=== PATIENT | female | born 1960 | race Caucasian/White ===

== ENCOUNTER 2020-02-08 08:11 | Observation (INO) ==
--- NOTE | 2019-12-31 14:18 | PAT Medication Instructions ---
Medication Instructions Date of Service December 31, 2019 Home Medications fluoxetine 20 mg PO QAM furosemide [Lasix] 10 mg PO DAILY PRN diclofenac sodium 75 mg PO BID PRN famotidine 20 mg PO DAILY PRN ASK your surgeon for instructions diclofenac sodium 75 mg PO BID PRN DO NOT take the morning of surgery furosemide [Lasix] 10 mg PO DAILY PRN Take morning of surgery With a small sip of water, OTHERWISE NOTHING TO EAT OR DRINK AFTER MIDNIGHT: fluoxetine 20 mg PO QAM famotidine 20 mg PO DAILY PRN (if needed) Other Notes If you have any questions please call us at [phone] or [phone] or [phone] or [phone]
--- NOTE | 2020-01-03 11:03 | Anesthesiology Consultation ---
Date of Service January 03, 2020 Assessment & Plan (1) Encounter for pre-operative examination: Chart Review Chart Review: Acceptable Risk for Surgery and Patient seen in Pre Admission Testing Teaching & Discussion Instructed NPO after midnight before surgery, except medications with 15 cc of water. Medication instructions provided according to the PAT guidelines. History Surgery Operation Date: 02/08/20 10:40 Proposed Procedures p Left Total Knee Arthroplasty - Ferny Pacheco MD Height/Weight Height: 5 ft Weight: 89.4 kg Allergies Allergy/AdvReac Type Severity Reaction Status Date / Time No Known Allergies Allergy Verified 01/03/20 09:02 Medications Home Medications Medication Instructions Recorded Confirmed Last Taken fluoxetine 20 mg PO QAM 06/05/18 01/03/20 07/06/18 08:00 furosemide [Lasix] 10 mg PO DAILY PRN 06/05/18 12/30/19 07/06/18 08:00 diclofenac sodium 75 mg PO BID PRN 12/30/19 01/03/20 Unknown famotidine 20 mg PO DAILY PRN 12/30/19 01/03/20 Unknown Past Medical History Medical History Bilateral primary osteoarthritis of knee Depression GERD (gastroesophageal reflux disease) History of ovarian cyst Nausea and vomiting after administration of anesthetic agent Osteoarthritis TMJ click Exercise / Class Metabolic Activity III < 4 Walking/Shop/Light housework (Denies CP or SOB with ambulation, cant do stairs 2/2 knee pain) Past Surgical History Surgical History History of bilateral tubal ligation History of cataract extraction with lens replacement BL History of colonoscopy w/ polypectomy History of ovarian cystectomy History of surgery cysts removed from coccyx History of toe surgery Left great toe History of tooth extraction Past Anesthesia History No Hx of Anesthesia Complications and No Family Hx of Anesthesia Complications History of PONV No Hx of Motion Sickness and History of PONV Social History Smoking Status: Current every day smoker tobacco type: cigarettes Smoking cigarettes per day: 1/2 PPD-- advised none AM DOS Do You Dip or Chew Tobacco: No Hx Alcohol Use: No Hx Substance Use: No substance use type: does not use Review of Systems Pt denies any recent chest pain, shortness of breath, palpitations, cough, fever or URI. Physical Exam Vital Signs BP: 136/82 P: 70bpm SPO2: 99% RA T: 97.9 F R: 16 ENMT Mouth: no dental restorations, no chipped teeth and no loose teeth Thyromental Distance: > or= 3.5 Finger Breadths (4) Mallampati Class: II Neck normal visual inspection; neck extension not limited Respiratory normal respiratory effort Auscultation: lungs clear to auscultation bilaterally Cardiovascular Rate/Rhythm: regular rate and regular rhythm Heart Sounds: no murmur Extremities: no edema Testing Laboratory Results 01/03/20 11:12 01/03/20 11:12 PT 10.3 Seconds (9.0-12.0) 01/03/20 11:12 INR 1.0 (0.9-1.1) 01/03/20 11:12 APTT 25.6 Seconds (21.0-31.0) 01/03/20 11:12 Blood Type A Positive 01/03/20 11:12 Antibody Screen NEGATIVE 01/03/20 11:12 Electrocardiogram Date: 01/03/20 Findings: + NSR @ (64bpm) Chest X-Ray Date: 01/03/20 FINDINGS: An apparent 2.5 cm right suprahilar focus has central lucency. This is likely artifactual. Lung volumes are normal. Lungs are clear. There is no pneumothorax or pleural effusion. Cardiac size is normal. Mediastinal contours are normal. There is no evidence for pulmonary edema. IMPRESSION: 1. Equivocal 2.5 cm right suprahilar focus with central lucency. This is likely artifactual. However, a chest CT is recommended. 2. No acute findings. THIS FINDING WAS FAXED TO THE PATIENT'S PCP FOR THEIR CONTINUED F/U.
[2020-01-03 11:37] LABS: Basophils # (auto) 0.07 K/uL (0-0.2); Basophils % (auto) 0.8 %; Eosinophils # (auto) 0.24 K/uL (0-0.5); Eosinophils % (auto) 2.8 %; Hematocrit (blood only) 44.1 % (37-47); Immature Granulocytes # (auto) 0.02 K/uL (0.00-0.02); Immature Granulocytes % (auto) 0.2 %; Lymphocytes # (auto) 3.19 K/uL (1.2-3.4); Lymphocytes % (auto) 37.8 %; Mean Corpuscular Hemoglobin 28.7 pg (25-34); Mean Corpuscular Hgb Conc 31.7 g/dL (32-36); Mean Corpuscular Volume 90.6 fL (80-100); Mean Platelet Volume 9.9 fL (7.4-10.4); Monocytes # (auto) 0.58 K/uL (0.11-0.59); Monocytes % (auto) 6.9 %; Neutrophils # (auto) 4.35 K/uL (1.4-6.5); Neutrophils % (auto) 51.5 %; Platelet Count 334 K/uL (130-400); RDW Coefficient of Variation 15.4 % (11.5-14.5); RDW Standard Deviation 51.2 fL (36.4-46.3); Red Blood Count 4.87 M/uL (4.2-5.4); White Blood Count 8.45 K/uL (4.8-10.8)
--- NOTE | 2020-01-03 11:37 | XRay Report ---
XR chest Pre-admission PA/Lat CLINICAL HISTORY: Preoperative evaluation. COMPARISON STUDY: No previous studies for comparison. FINDINGS: An apparent 2.5 cm right suprahilar focus has central lucency. This is likely artifactual. Lung volumes are normal. Lungs are clear. There is no pneumothorax or pleural effusion. Cardiac size is normal. Mediastinal contours are normal. There is no evidence for pulmonary edema. IMPRESSION: 1. Equivocal 2.5 cm right suprahilar focus with central lucency. This is likely artifactual. However, a chest CT is recommended. 2. No acute findings. ACT 112: Positive. There are findings on this exam that require communication between the performing entity and the patient following Patient Test Result Information Act ([place] Act 112) guidelines. Electronically signed by: Aime Salazar M.D. 01/03/2020 11:35 AM
[2020-01-03 11:50] LABS: Partial Thromboplastin Ratio 0.9; Partial Thromboplastin Time 25.6 Seconds (21.0-31.0); Prothrombin Time 10.3 Seconds (9.0-12.0)
--- NOTE | 2020-01-03 12:37 | Electrocardiogram Report ---
Test Reason : Blood Pressure : / mmHG Vent. Rate : 064 BPM Atrial Rate : 064 BPM P-R Int : 132 ms QRS Dur : 088 ms QT Int : 424 ms P-R-T Axes : 052 041 022 degrees QTc Int : 437 ms Normal sinus rhythm Normal ECG No previous ECGs available Confirmed by Billy Yoder ([id number]) on 01/03/2020 12:37:30 PM Referred By: Ferny Pacheco Confirmed By:Jose Carlos Yoder
[2020-01-03 13:36] LABS: BUN Creatinine Ratio 17.5 (10-20); Calcium 9.3 mg/dl (8.5-10.1); Creatinine Clr Calc Pharmacy 58.5 ml/min; Est GFR (African American) 68.9; Est GFR (Non-African American) 59.5
--- NOTE | 2020-02-05 11:32 | History and Physical Report ---
DATE OF ADMISSION: 02/08/2020 CHIEF COMPLAINT: Bilateral knee pain and discomfort, left side greater than right. HISTORY OF PRESENT ILLNESS: The patient is a 59-year-old female from [facility] who specifically presents for surgical treatment of her left knee. She has got a long history of bilateral knee pain and discomfort that has gradually gotten worse over the past 5-10 years. She has been through extensive conservative treatment by her primary care doctor including multiple injections, which have become less successful over time. Last shot actually made her left knee worse. She has been on prednisone, which seemed to help some. She has global pain. The more she walks, the more it hurts. She limps more as the day goes on. There are some days that she cries at the end of the day. She would like to have her left knee fixed. PAST MEDICAL HISTORY: Significant for: 1. Anxiety/depression. 2. Gastroesophageal reflux disease. 3. Mild obesity. 4. Smoking history. PAST SURGICAL HISTORY: Includes: 1. Toe surgery. 2. Tailbone cyst removal. 3. Tubal ligation. ALLERGIES: SEASONAL. CURRENT MEDICINES: Include: 1. Diclofenac twice a day. 2. Famotidine 20 mg a day. 3. Fluoxetine. 4. Lasix 10 mg a day. SOCIAL HISTORY: A 59-year-old female. She is from [place]. She smokes half a pack of cigarettes a day. Does not drink alcohol. FAMILY HISTORY: Noncontributory. REVIEW OF HISTORY: Negative for diabetes, neurologic problem, vascular problems or bleeding disorders. Denies any chest pain or shortness of breath. No history of DVT or PE. No known bleeding problems. PHYSICAL EXAMINATION: GENERAL: Shows a pleasant, middle-aged female. She looks to be in pretty good health. HEENT: Benign. NECK: Supple, no lymphadenopathy. LUNGS: Clear to auscultation. HEART: Regular rate and rhythm. ABDOMEN: Soft, nontender, nondistended. EXTREMITIES: Grossly neurovascularly intact except as follows: Examination of both knees reveals the patient walks independently. She has got varus alignment to both knees. She limps a little bit more on the left than the right, walks a little bit of a waddling gait. She has got a varus deformity to her knee, which is increased with weightbearing. She is tender with medial joint line bilaterally. Range of motion on the left is near full extension to 125 degrees of flexion. There is no instability. Range of motion on the right is 5-125. Small knee effusion. No instability. X-RAYS: X-rays of both knees were reviewed. Advanced bilateral medial compartment DJD. She has got complete loss of medial joint space on both sides. She has got osteophytes throughout. ASSESSMENT: A 59-year-old white female with bilateral knee degenerative joint disease, left side a bit worse than the right symptomatically. She has failed conservative treatment and would like to have her left knee replaced. PLAN: We are going to proceed with left knee replacement. The risks and benefits of this procedure were explained to the patient including but not limited to DVT, PE, , infection, neurological injury, vascular injury, bleeding problem, pain, limited range of motion, persistent pain, and need for further surgery in the future. The patient understands and desires to proceed. Informed consent was obtained. She does have a history of smoking. We talked about stopping. She will likely need a patch in the hospital. We also talked about holding her diclofenac 10 days preop. Her preoperative workup showed a questionable lesion on her chest and we will have her primary care doctor follow up on that.
[~2020-02-08 08:11] MED LIST: ACETAMINOPHEN 500 MG TAB PO SCH; BUPIVACAINE 0.5 % 5 MG/1 ML PF 10ML VIAL ONE; BUPIVACAINE LIPOSOME/PF 266 MG, BUPIVACAINE/EPINEPHRINE 50 ML, SODIUM CHLORIDE 0.9% 30 ... INFIL SCH; CEFAZOLIN 2000MG 2,000 MG/15 ML SYR IV SCH; FAMOTIDINE 20 MG TAB PO SCH; GABAPENTIN 600 MG DOSE PO SCH; LR 500ML BOLUS, THEN 15ML/HR IV SCH; LR 60ML/HR IV SCH; METOCLOPRAMIDE HCL 10 MG TABLET PO SCH; MIDAZOLAM HCL 1 MG/ML 2ML VIAL ONE; TRANEXAMIC ACID 1,000 MG **IV Intra-op IV SCH; fentaNYL citrate 100 MCG/2 ML VIAL ONE
[2020-02-08] MEDS ORDERED: ATROPINE SULFATE 0.1 MG/ML 10ML SYR IV PRN (09:52)
[2020-02-08] MEDS ORDERED: ePHEDrine sulfate 50 MG/ML AMP IV PRN (09:52)
[2020-02-08] MEDS ORDERED: ONDANSETRON INJ 2 MG/ML 2 ML VIAL IV PRN ×2 (09:52→13:35)
[2020-02-08] MEDS ORDERED: fentaNYL citrate 100 MCG/2 ML VIAL IV PRN (09:52)
[2020-02-08] MEDS ORDERED: SODIUM CHLORIDE 0.9% PF 50 ML VIAL ONE (10:18)
[2020-02-08] MEDS ORDERED: BUPIVACAINE/EPINEPHRINE 0.25% 1:200,000 30 ML VIAL ONE (10:18)
[2020-02-08] MEDS ORDERED: BUPIVACAINE LIPOSOME 1.3% 266 MG/20 ML VIAL ONE (10:18)
[2020-02-08] MEDS ORDERED: BACITRACIN INJ 50,000 UNIT VIAL ONE (10:19)
--- NOTE | 2020-02-08 10:24 | History & Physical Bridge Note ---
Date of Service February 08, 2020 History & Physical Bridge Note I have examined the patient, reviewed the History & Physical and in the interval since the performance of the History & Physical I have noted the following changes of clinical significance: no changes noted
[2020-02-08] MEDS ORDERED: PROPOFOL IV EMULSION 10 MG/ML 20 ML VIAL IV ONE (10:40)
--- NOTE | 2020-02-08 12:26 | Post Operative Brief Note ---
PG Immediate Post Op with CF Date of Surgery February 08, 2020 Pre & Post Diagnosis Operation Date: 02/08/20 10:40 Pre-Op Diagnosis: Left Knee Advanced Degenerative Joint Disease Post-Op Diagnosis: Left Knee Advanced Degenerative Joint Disease I identified the patient and participated in the time-out.: Yes Procedure Operation Date: 02/08/20 10:40 Actual Procedures p Left Total Knee Arthroplasty(Left) - Ferny Pacheco MD Surgeon Ferny Pacheco MD Forest[employer] Tree Pruner Posniak, PAC Estimated Blood Loss 50 Findings Consistent with Post-Op Diagnosis Fluids 700 cc Specimens Specimen Description: Permanent: A. Left Knee Bone and Tissue Drains Zhang Catheter Anesthesia Type Spinal MAC Disposition Accompanied Patient To Recovery: No Disposition: Recovery Room
--- NOTE | 2020-02-08 12:41 | Operative Report ---
Post Operative Report Pre & Post Diagnosis Operation Date: 02/08/20 10:40 Pre-Op Diagnosis: Left Knee Advanced Degenerative Joint Disease Post-Op Diagnosis: Left Knee Advanced Degenerative Joint Disease I identified the patient and participated in the time-out.: Yes Procedure Operation Date: 02/08/20 10:40 Actual Procedures p Left Total Knee Arthroplasty(Left) - Ferny Pacheco MD Surgeon Ferny Pacheco MD Molder Setter Irina, PAC Estimated Blood Loss 50 Findings Consistent with Post-Op Diagnosis Operative findings revealed advanced left knee DJD. She had extensive grade 4 [id number] disease and eburnation of the medial femoral condyle medial tibial plateau. She had a varus deformity to her knee with osteophytes particular in the posterior medial compartment. Moderate-sized joint effusion. About a 10 to 15 degree flexion contracture. Fluids 700 cc. Specimens Left knee sent for pathology. Drains None. Anesthesia Type Spinal MAC Complications none Disposition Accompanied Patient To Recovery: No Disposition: Recovery Room Indications Patient is a 59-year-old female is had a long history of bilateral knee pain discomfort. She has been through extensive conservative treatment which became less successful over time. A left knee was by the more than the right. X-ray showed advanced medial compartment DJD. She elected proceed with surgical treatment. Patient was thought to possibly have a nickel allergy and therefore we used a Nguyen [employer] Nephew zirconium journey 2 knee arthroplasty. Trevor Arevalo, physician [employer] assistant manager, was present for the entire procedure. He was critical for patient positioning, prepping, draping, retraction, exposure, wound closure, and application of a sterile dressing. Description of Procedure Operative implants consist of: 1. Nguyen [employer] Nephew size 5 left journey 2 posterior stabilized femoral component. 2. Nguyen [employer] Nephew journey 2 size 3 tibial tray. 3. Nguyen [employer] Nephew 9 mm Po stabilized polyethylene insert. 4. 29 x 9 all poly-patella. Patient was taken to the operating room identified and placed on the operating table supine position. All contact areas were appropriately padded. IV antibiotics arrived by anesthesia team. A spinal anesthetic and been implemented holding area. Zhang catheter was placed in sterile fashion. Left factor was then placed in the left lower extremity was then prepped and draped in usual sterile fashion. The left leg was elevated and exsanguinated with use of an Esmarch interspace at 300 mmHg. An anterior posterior left knee was then performed through a longitudinal incision centered over the patella. Sharp dissection got through subcutaneous this down to the extensor mechanism. A medial parapatellar arthrotomy incision was made. Some subperiosteal dissection was carried out medially. The fat pad was dissected beneath patella tendon. Lateral patellofemoral ligament was released. Patella was subluxated laterally and the knee was flexed with the osteophytes taken off distal femur. The ACL PCL were then released in the distal femur and the tibia subluxate anteriorly. External tibial alignment jig was then placed in the interface the tibia and adjusted 8 mm medially. Proximal tibial cut was made remove about 1 to 2 mm of bone from the most efficient aspect medial tibial plateau. Some osteophytes were taken off medial and posterior medially. The tibia sized to a size 3. Attention drawn the femur. The distal femur was entered with a sharp drill. The intramedullary canal was suction. A left 5 degree valgus cutting guide was placed. Distal femoral cutting block was put and pinned in place. The distal femoral cut was made to take an additional 2 mm of bone off distal femur. The femur was then sized to a size 5 exactly. The AP cutting block was pinned parallel to the epicondylar axis which was 5 degrees of external rotation. The anterior cut, anterior cord, posterior cut, posterior chamfer cut, anterior chamfer cut were then made. The knee was flexed. The remnants of the medial lateral menisci were excised. The osteophytes were taken off the posterior aspect of the femur. I then placed the femoral component. The box cutting guide was then placed and the box cut was made. The trochlear component was placed. The tibia was then pinned in maximum external rotation and the drill and stem punch were used to create defect in the proximal tibia for the tibial tray. Then trialed the knee and the 9 mm insert fit most appropriately. Attention drawn the patella. Patella was cleaned of all soft tissues. Patella thickness measured 23 mm in thickness cut down to 13. Was sized to a size 29 patella. Locals were drilled for the 29 patella. The lateral osteophyte was removed. Patella button was placed. Knee was taken through range of motion patella tracked nicely with no thumbs test. Attention drawn to placing the permanent components. All trial components were removed. Bone plug was placed in the distal femur limit blood loss put a double batch Pal[place] G cement was mixed. A Nguyen & Nephew size 5 left posterior by femoral component, size 3 tibial tray, 9 mm Po stabilized polyethylene insert, and a 29 x 9 all poly-patella then cement placed. Knee was brought out into full extension total cement hardened. Final cement check was then performed. The pericapsular tissues were injected with total 100 cc of combination of 20 cc of Exparel, 30 cc normal saline, 50 cc of quarter percent Marcaine with epinephrine. Patient did receive 1 g tranexamic acid. The tourniquet was then let down for tourniquet time 64 minutes. Hemostasis assured use electrocautery. Extensor mechanism then closed with combination 1 PDS suture #1 Vicryl suture in [id number] fashion to the extensor mechanism checked found to be intact the subcutaneous tissue then closed with 2 Dexon suture in buried interrupted fashion. Skin was closed with skin dennise. Leg was then cleaned and dried a sterile dressing composed Xeroform, 4 x 4's, sterile cast padding, Geovanny bandage were applied. Patient then transferred to the recovery room in stable condition. Patient tolerated procedure well no complications. Trevor Arevalo PA-C was present for the entire procedure. He was critical for patient positioning, prepping, draping, retraction, exposure, wound closure, and application of a sterile dressing. I attest to the content of the Intraoperative Record and any orders documented therein. Any exceptions are noted below.
--- NOTE | 2020-02-08 12:58 | Anesthesiology Progress Note ---
Date of Service February 08, 2020 Anesthesia Post Procedure Vital Signs Vital Signs: Temp Pulse Pulse Resp BP BP Pulse Ox 02/08/20 12:45 76 19 144/79 H 100 02/08/20 12:35 80 13 152/73 H 100 02/08/20 12:29 98.2 F 79 16 145/85 H 100 02/08/20 09:41 64 18 156/109 H 98 02/08/20 08:43 98.2 F 78 18 184/82 H 98 Pain Intensity Left Knee: Pain Intensity: 0 Transfer of Care Handoff Completed per policy Notes Mental Status: alert / awake / arousable and participated in evaluation Patient Amnestic to Procedure: Yes Nausea / Vomiting: adequately controlled Pain: adequately controlled Airway Patency, RR, SpO2: stable & adequate BP & HR: stable & adequate Hydration State: stable & adequate Neuraxial Anesthesia: was administered and sensory block is resolving Anesthetic Complications: no major complications apparent and Pt Satisfied with anesthetic care
--- NOTE | 2020-02-08 12:58 | XRay Report ---
XR knee LT 1 or 2V routine CLINICAL HISTORY: Postoperative evaluation. COMPARISON: Knee radiographs January 03, 2020. FINDINGS: Alignment of the total left knee arthroplasty is anatomic. There is no fracture or unexpec emili radiopaque foreign body. There are skin dennise. IMPRESSION: Expected findings following total left knee arthroplasty. ACT 112: Negative or not required by law. Electronically signed by: Aime Salazar M.D. 02/08/2020 12:57 PM
[2020-02-08] MEDS ORDERED: FUROSEMIDE 20 MG TAB PO PRN (13:35)
[2020-02-08] MEDS ORDERED: METOCLOPRAMIDE HCL INJ 5 MG/ML 2 ML VIAL IV PRN (13:35)
[2020-02-08] MEDS ORDERED: FAMOTIDINE 20 MG TAB PO PRN (13:35)
[2020-02-08] MEDS ORDERED: MAGNESIUM HYDROXIDE SUSP 30 ML UDC PO PRN (13:35)
[2020-02-08] MEDS ORDERED: bisacodyL 10 MG SUPP PR PRN (13:35)
[2020-02-08] MEDS ORDERED: ALUMINUM/MAGNESIUM SUSP 30 ML UDC PO PRN (13:35)
[2020-02-08] MEDS ORDERED: NALOXONE HCL 0.4 MG/1 ML VIAL/CARP IV PRN (13:35)
[2020-02-08] MEDS ORDERED: HYDROmorphone INJ 0.5 MG/0.5 ML SYR IV PRN (13:35)
[2020-02-08] MEDS: SODIUM CHLORIDE 0.9% 1000ML 1,000 ML IV SCH (14:39)
[2020-02-08] MEDS: KETOROLAC 30 MG/ML VIAL IV SCH ×2 (14:39→20:56)
[2020-02-08] MEDS: OXYCODONE HCL IR 5 MG TAB (IMMEDIATE RELEASE) PO PRN (16:15)
[2020-02-08] MEDS: Scopolamine CHECK PATCH PLACEMENT SCH (16:18)
[2020-02-08] MEDS: ACETAMINOPHEN 500 MG TAB PO SCH ×2 (16:19→21:01)
[2020-02-08] MEDS: ASCORBIC ACID 500 MG TAB PO SCH (16:19)
[2020-02-08] MEDS: FERROUS GLUCONATE 324 MG TAB PO SCH (16:19)
--- NOTE | 2020-02-08 17:00 | Progress Notes ---
DATE: 02/08/2020 SUBJECTIVE: A 59-year-old white female postop from a left knee replacement. She is doing pretty well. Just starting to get some pain. No chest pain or shortness of breath. Not feeling dizzy or lightheaded. OBJECTIVE: VITAL SIGNS: Temperature 36.5. Vital signs stable. GENERAL: Shows a pleasant, middle-aged female. She is lying in bed and looks comfortable. She is doing some knee exercises. LUNGS: Clear to auscultation. HEART: Has a regular rate and rhythm. ABDOMEN: Soft, nontender, nondistended. EXTREMITIES: Grossly neurovascularly intact except as follows: Examination of the left leg reveals the leg to be well aligned. Dressing is clean, dry and intact. She can dorsiflex and plantarflex her foot appropriately. She is neurologically intact. X-RAYS: X-rays of the left knee from recovery room are reviewed. It shows a left cemented posterior stabilized total knee arthroplasty. Components looked to be in good position. No signs of problems. ASSESSMENT: A 59-year-old white female postoperative from a left knee replacement, doing well. Pain is controlled. She is neurologically intact. PLAN: 1. DVT prophylaxis including thigh-high TEDs, SCDs, and aspirin twice a day. 2. PT/OT. Weight bear as tolerated. Left total knee protocol. 3. Pain control, doing well with current pain regimen. 4. IV antibiotics x24 hours. 5. Disposition: Plan to discharge to home. She is going to do outpatient therapy once adequately recovered and medically stable.
[2020-02-08] MEDS ORDERED: TRANEXAMIC ACID / 0.7% NACL 1,000 MG/100 ML BAG IV SCH (18:29)
[2020-02-08] MEDS: CEFAZOLIN 2000MG 2,000 MG/15 ML SYR IV SCH (19:28)
[2020-02-08] MEDS: DOCUSATE SODIUM 100 MG CAP PO SCH (20:59)
[2020-02-08] MEDS: ASPIRIN 81 MG ECTAB PO SCH (20:59)
[2020-02-08] MEDS: TAPENTADOL HCL ER 50 MG TABCR PO SCH (20:59)
[2020-02-08] MEDS: SENNA 8.6 MG TAB PO SCH (20:59)
[2020-02-09] MEDS: Scopolamine CHECK PATCH PLACEMENT SCH ×3 (00:41→15:16)
[2020-02-09] MEDS: SODIUM CHLORIDE 0.9% 1000ML 1,000 ML IV SCH ×2 (01:14→06:25)
[2020-02-09] MEDS: KETOROLAC 30 MG/ML VIAL IV SCH ×4 (01:54→19:21)
[2020-02-09] MEDS: CEFAZOLIN 2000MG 2,000 MG/15 ML SYR IV SCH (01:57)
[2020-02-09 06:20] LABS: Hematocrit (blood only) 36.4 % (37-47); Hemoglobin 11.9 g/dL (12.0-16.0); Mean Corpuscular Hemoglobin 29.7 pg (25-34); Mean Corpuscular Hgb Conc 32.7 g/dL (32-36); Mean Corpuscular Volume 90.8 fL (80-100); Mean Platelet Volume 9.5 fL (7.4-10.4); Platelet Count 260 K/uL (130-400); RDW Coefficient of Variation 15.1 % (11.5-14.5); RDW Standard Deviation 50.9 fL (36.4-46.3); Red Blood Count 4.01 M/uL (4.2-5.4); White Blood Count 11.23 K/uL (4.8-10.8)
[2020-02-09] MEDS: ACETAMINOPHEN 500 MG TAB PO SCH ×3 (06:22→21:40)
[2020-02-09 06:58] LABS: BUN Creatinine Ratio 18.1 (10-20); Calcium 8.3 mg/dl (8.5-10.1); Creatinine Clr Calc Pharmacy 76.3 ml/min; Est GFR (Non-African American) 81.9
--- NOTE | 2020-02-09 07:53 | Progress Notes ---
DATE: 02/09/2020 SUBJECTIVE: A 59-year-old white female postop day 1 from a left knee replacement. She is doing pretty well. Has a significant amount of pain with motion but not much pain resting. No new complaints. No chest pain or shortness of breath. Not feeling dizzy or lightheaded. OBJECTIVE: VITAL SIGNS: Temperature 36.8. Vital signs stable. GENERAL: Shows a pleasant, middle-aged female. She is lying in bed, looks pretty comfortable. EXTREMITIES: Examination of the left leg reveals the dressing to be clean, dry, and intact. She can dorsiflex and plantarflex her foot appropriately. She is neurologically intact. LABORATORY DATA: Hemoglobin 11.9. Hematocrit 36.4. Electrolytes are stable. ASSESSMENT: A 59-year-old white female postop day 1 from left knee replacement, doing pretty well. Pain has been reasonably well controlled. She is neurologically intact. PLAN: 1. DVT prophylaxis including thigh-high TEDs, SCDs, and aspirin twice a day. 2. PT/OT. Weight bear as tolerated. Left total knee protocol. 3. Pain control, doing pretty well with current pain regimen. 4. Disposition: She is planning to be discharged to home and she is hoping just do outpatient therapy. We will see how things go today with therapy and pain control. Likely discharge tomorrow after therapy.
--- NOTE | 2020-02-09 08:01 | Anesthesiology Progress Note ---
Date of Service February 09, 2020 Anesthesia Post Procedure Vital Signs Vital Signs: Temp Pulse Pulse Resp BP BP Pulse Ox 02/09/20 07:27 36.9 C 67 18 158/81 H 96 02/09/20 03:14 36.8 C 71 16 144/80 H 96 02/08/20 23:14 37.0 C 71 16 157/78 H 96 02/08/20 19:10 36.9 C 65 16 126/78 96 02/08/20 15:17 36.5 C 85 16 127/73 99 02/08/20 14:20 36.3 C L 62 18 137/83 95 02/08/20 13:52 36.3 C L 66 16 130/73 99 02/08/20 13:20 36.4 C L 64 14 148/76 H 100 02/08/20 13:00 65 15 141/68 H 96 02/08/20 12:55 36.4 C L 63 14 127/79 99 02/08/20 12:45 76 19 144/79 H 100 02/08/20 12:35 80 13 152/73 H 100 02/08/20 12:29 36.8 C 79 16 145/85 H 100 02/08/20 09:41 64 18 156/109 H 98 02/08/20 08:43 36.8 C 78 18 184/82 H 98 Pain Intensity Left Knee: Pain Intensity: 0 Notes Mental Status: alert / awake / arousable and participated in evaluation Patient Amnestic to Procedure: Yes Nausea / Vomiting: adequately controlled Pain: adequately controlled Airway Patency, RR, SpO2: stable & adequate BP & HR: stable & adequate Hydration State: stable & adequate Neuraxial Anesthesia: was administered and sensory block resolved Anesthetic Complications: no major complications apparent and Pt Satisfied with anesthetic care
[2020-02-09] MEDS: FLUOXETINE HCL 20 MG CAP PO SCH (08:34)
[2020-02-09] MEDS: MULTIVITAMIN TAB PO SCH (08:34)
[2020-02-09] MEDS: NICOTINE 14 MG/24 HR PATCH TD SCH (08:35)
[2020-02-09] MEDS: FERROUS GLUCONATE 324 MG TAB PO SCH ×2 (08:35→17:24)
[2020-02-09] MEDS: ASPIRIN 81 MG ECTAB PO SCH ×2 (08:35→20:36)
[2020-02-09] MEDS: ASCORBIC ACID 500 MG TAB PO SCH ×2 (08:35→17:24)
[2020-02-09] MEDS: DOCUSATE SODIUM 100 MG CAP PO SCH ×2 (08:36→20:36)
[2020-02-09] MEDS: TAPENTADOL HCL ER 50 MG TABCR PO SCH ×2 (08:48→20:36)
[2020-02-09] MEDS: OXYCODONE HCL IR 5 MG TAB (IMMEDIATE RELEASE) PO PRN (09:13)
[2020-02-09] MEDS: SENNA 8.6 MG TAB PO SCH (20:36)
[2020-02-10] MEDS: KETOROLAC 30 MG/ML VIAL IV SCH ×2 (02:23→08:54)
[2020-02-10] MEDS: ACETAMINOPHEN 500 MG TAB PO SCH (06:09)
[2020-02-10] MEDS: MULTIVITAMIN TAB PO SCH (08:54)
[2020-02-10] MEDS: Scopolamine CHECK PATCH PLACEMENT SCH ×2 (08:55)
[2020-02-10] MEDS: ASPIRIN 81 MG ECTAB PO SCH (08:55)
[2020-02-10] MEDS: ASCORBIC ACID 500 MG TAB PO SCH (08:55)
[2020-02-10] MEDS: FERROUS GLUCONATE 324 MG TAB PO SCH (08:55)
[2020-02-10] MEDS: DOCUSATE SODIUM 100 MG CAP PO SCH (08:55)
[2020-02-10] MEDS: NICOTINE 14 MG/24 HR PATCH TD SCH (08:55)
[2020-02-10] MEDS: FLUOXETINE HCL 20 MG CAP PO SCH (08:55)
[2020-02-10] MEDS: TAPENTADOL HCL ER 50 MG TABCR PO SCH (09:07)
--- NOTE | 2020-02-10 12:14 | Progress Notes ---
DATE: 02/10/2020 SUBJECTIVE: A 59-year-old white female postop day 2 from left knee replacement. She is doing pretty well. Rates her pain at worse at 5. Therapy went pretty well. Had a good night last night. No chest pain or shortness of breath. Not feeling dizzy or lightheaded. OBJECTIVE: VITAL SIGNS: Temperature 37.0. Vital signs stable. GENERAL: Shows a pleasant, middle-aged female. She is sitting up in bed, looks quite comfortable. EXTREMITIES: Examination of the left leg reveals the dressing to be clean, dry and intact. Leg is well aligned. She can dorsiflex and plantarflex her foot appropriately. She is neurologically intact. ASSESSMENT: A 59-year-old white female postoperative day 2 from left knee replacement, doing pretty well. Pain is controlled. PLAN: 1. DVT prophylaxis including thigh-high TEDs, SCDs, and aspirin twice a day. 2. PT/OT. Weight bear as tolerated. Left total knee protocol. 3. Pain control, doing pretty well with current pain regimen. 4. Disposition: She is going to be discharged to home and she is planning on doing outpatient therapy.
--- NOTE | 2020-02-18 13:20 | Discharge Summary ---
Date of Service February 18, 2020 Admission HPI Per Admitting Provider Well documented in the H&P Admission Exam (Per Admitting) Constitutional Well documented in the admission H&P Discharge Data Consultations 02/08/20 13:35 Consult Case Management - Discharge Planning Routine Procedures Performed Operation Date: 02/08/20 10:40 Actual Procedures p Left Total Knee Arthroplasty(Left) - Ferny Pacheco MD Hospital Course (1) Status post total left knee replacement: This patient is a 59 year old female admitted on 02/08/20 and underwent left total knee arthroplasty. She tolerated the procedure well and there were no complications. Transferred to the PACU post op and later to the orthopedic floor for further care. She was given ancef for antibiotic prophylaxis. She was also given RAO stockings, SCDs, and aspirin for DVT prophylaxis. Hemoglobin, hematocrit, and vital signs were monitored during her hospital stay and remained stable. Did not require any blood transfusions. There were no complications during her hospital stay. By post op day #2 the patient was tolerating a regular diet, pain was reasonably controlled with oral pain medicine, and she was participating in physical therapy. On post op day #2 the patient was discharged home and set up with home health care. She was given printed discharge instructions including prescriptions for extra strength tylenol, aspirin, and tramadol. Continue physical therapy, weight bearing as tolerated. Continue RAO stockings. Follow up approximately 2 weeks post op or sooner if there are problems or concerns. Coding Level of Care Code None Diagnoses Status post total left knee replacement Z96.652
== END 2020-02-10 13:00 | disposition home or self-care (01) ==
LOC: 3E 08:11 → ASU 08:11

== ENCOUNTER 2020-05-11 10:07 | Observation (INO) ==
--- NOTE | 2020-05-03 22:39 | History and Physical Report ---
DATE OF ADMISSION: 05/11/2020 CHIEF COMPLAINT: Persistent right knee pain and discomfort. HISTORY OF PRESENT ILLNESS: The patient is a 60-year-old female from the [facility] who presents for a followup and treatment of her knees. She is now about 3 months out from her left knee replacement, which has done quite well. She continues to be limited by right knee pain and discomfort. Her knee has been bothering her for the past 5-10 years. She has been through extensive conservative treatment via primary care doctor consisting of injections and oral medicines which have become less successful over time. She got global pain. The more she walks, the more it hurts. She is now limited by right knee. Left knee is doing quite well after surgery. ALLERGIES: SEASONAL. CURRENT MEDICATIONS: Include: 1. Diclofenac. 2. Famotidine. 3. Fluoxetine. 4. Lasix 10 mg a day. SOCIAL HISTORY: A 60-year-old female. She is from [place]. She smokes about a pack of cigarettes a day. No alcohol intake. FAMILY HISTORY: Noncontributory. REVIEW OF SYSTEMS: Negative for diabetes, neurologic problem, vascular problems or bleeding disorders. Denies any chest pain or shortness of breath. No history of DVT or PE. No bleeding problems. PHYSICAL EXAMINATION GENERAL: Shows a pleasant, middle-aged female. Looks to be in excellent health. HEENT: Benign. NECK: Supple, no lymphadenopathy. LUNGS: Clear to auscultation. HEART: Has a regular rate and rhythm. ABDOMEN: Soft, nontender and nondistended. EXTREMITIES: Grossly neurovascularly intact except as follows: Examination of both knees reveal patient walks independently. Examination of the right knee reveals slight varus alignment. She is tender over the medial joint line. She has got bony hypertrophy medially. Small knee effusion. Range of motion 5-125. Examination of the knee reveals well-healed incision. Mild swelling. Range of motion 0-120. Good straight leg raise. X-RAYS: X-rays of the right knee were reviewed. It shows advanced right knee DJD. She has got complete loss of medial joint space. Osteophytes of the medial femoral condyle and medial tibial plateau. X-rays of the left knee reveal a cemented posterior stabilized total knee arthroplasty. Components looked to be in good position. No signs of problems. ASSESSMENT: A 59-year-old white female now about 3 months out from a left knee replacement with persistent progressive right knee pain, unresponsive to conservative treatment. She would like to proceed with right knee replacement. PLAN: We will take her to the operating room and do right total knee replacement. The risks and benefits of this procedure were explained to the patient including but not limited to DVT, PE, , infection, neurological injury, vascular injury, bleeding problem, pain, limited range of motion, stiffness, failure to relieve symptoms, incomplete relief of symptoms, need for further surgery in future, fracture, leg length inequality, nerve palsy, etc. The patient understands and desires to proceed. Informed consent was obtained. She is planning to be discharged to home and do outpatient therapy. She is considering home health, but last time I think she just did outpatient therapy, which is just several months ago. We did talk to her about stopping her diclofenac 10 days preop.
--- NOTE | 2020-05-09 08:45 | Anesthesiology Consultation ---
Date of Service May 09, 2020 Assessment & Plan (1) Encounter for pre-operative examination: - Per assessment on 04/24: Travel screen negative. No known COVID-19 positive contacts or current COVID-19 related symptoms. COVID testing done 05/04 at [facility] as negative. - S/P Left TKA: 02/08/20: SAB x1 attempt at L4-L5 + PNB at [facility] - Check CBC AM DOS (d/t lab error, CBC not drawn with 03/2020 labs- therefore will order for AM DOS) Chart Review Chart Review: Acceptable Risk for Surgery and Patient NOT seen in Pre Admission Testing History Surgery Operation Date: 05/11/20 11:00 Proposed Procedures p Right Total Knee Arthroplasty - Ferny Pacheco MD Height/Weight Height: 5 ft Weight: 86.183 kg Allergies Allergy/AdvReac Type Severity Reaction Status Date / Time metal AdvReac Rash Uncoded 04/24/20 13:10 Medications Home Medications Medication Instructions Recorded Confirmed Last Taken fluoxetine 20 mg PO QAM 06/05/18 04/24/20 02/08/20 06:30 furosemide [Lasix] 10 mg PO DAILY PRN 06/05/18 04/24/20 02/07/20 09:00 famotidine 20 mg PO DAILY PRN 12/30/19 04/24/20 02/07/20 19:00 miscellaneous medical supply #1 ea 02/24/20 02/24/20 Unknown diclofenac sodium 75 mg 75 mg PO BID PRN #60 tab 03/13/20 04/24/20 Unknown tablet,delayed release loratadine 10 mg PO QPM 04/24/20 04/24/20 Unknown Past Medical History Medical History Depression GERD (gastroesophageal reflux disease) History of ovarian cyst Obesity Osteoarthritis TMJ click Past Surgical History Surgical History History of bilateral tubal ligation History of cataract extraction with lens replacement B/L History of colonoscopy w/ polypectomy History of left knee replacement Left TKA: 02/08/20: SAB x1 attempt at L4-L5 + PNB at [facility] History of ovarian cystectomy History of surgical removal of pilonidal cyst History of toe surgery Left great toe History of tooth extraction Nausea and vomiting after administration of anesthetic agent Social History Smoking Status: Current every day smoker tobacco type: cigarettes Smoking cigarettes per day: 1/2 PPD Do You Dip or Chew Tobacco: No Hx Alcohol Use: No Hx Substance Use: No substance use type: does not use Testing Laboratory Results 02/09/20 WBC 11.23 H/H 11.9/36.4 PLATELETS 260 04/06/20 SODIUM 141 POTASSIUM 4.1 CHLORIDE 109 CO2 27 BUN 16 CREATININE 1.00 GLUCOSE 87 PT 10.3 PTT 27.3 INR 1.0 TYPE AND SCREEN A+ Ab- Electrocardiogram Date: 01/03/20 Findings: + NSR @ (64) Chest X-Ray Date: 01/03/20 Equivocal 2.5 cm right suprahilar focus with central lucency. This is likely artifactual. However, a chest CT is recommended. No acute findings. CXR was ordered as preop prior to 01/2020 orthopedic surgery. Report was forwarded to PCP for continuity of care.
[~2020-05-11 10:07] MED LIST changes: -CEFAZOLIN 2000MG 2,000 MG/15 ML SYR IV SCH; +ROPIVACAINE 0.5% 5 MG/ML 30 ML VIAL ONE; +ceFAZolin 2000MG 2,000 MG/15 ML SYR IV SCH
[2020-05-11 10:52] LABS: Basophils # (auto) 0.06 K/uL (0-0.2); Basophils % (auto) 0.6 %; Eosinophils # (auto) 0.18 K/uL (0-0.5); Eosinophils % (auto) 1.9 %; Hematocrit (blood only) 41.9 % (37-47); Hemoglobin 13.5 g/dL (12.0-16.0); Immature Granulocytes # (auto) 0.02 K/uL (0.00-0.02); Immature Granulocytes % (auto) 0.2 %; Lymphocytes # (auto) 3.07 K/uL (1.2-3.4); Lymphocytes % (auto) 32.7 %; Mean Corpuscular Hemoglobin 28.7 pg (25-34); Mean Platelet Volume 9.7 fL (7.4-10.4); Monocytes # (auto) 0.59 K/uL (0.11-0.59); Monocytes % (auto) 6.3 %; Neutrophils # (auto) 5.47 K/uL (1.4-6.5); Neutrophils % (auto) 58.3 %; Platelet Count 308 K/uL (130-400); RDW Coefficient of Variation 14.4 % (11.5-14.5); RDW Standard Deviation 47.2 fL (36.4-46.3); Red Blood Count 4.71 M/uL (4.2-5.4); White Blood Count 9.39 K/uL (4.8-10.8)
[2020-05-11 10:53] LABS: Mean Corpuscular Hgb Conc 32.2 g/dL (32-36)
--- NOTE | 2020-05-11 11:25 | History & Physical Bridge Note ---
Date of Service May 11, 2020 History & Physical Bridge Note I have examined the patient, reviewed the History & Physical and in the interval since the performance of the History & Physical I have noted the following changes of clinical significance: no changes noted
[2020-05-11] MEDS ORDERED: ONDANSETRON INJ 2 MG/ML 2 ML VIAL IV PRN ×2 (11:59→16:12)
[2020-05-11] MEDS ORDERED: ATROPINE SULFATE 0.1 MG/ML 10ML SYR IV PRN (11:59)
[2020-05-11] MEDS ORDERED: PROMETHAZINE HCL 6.25 MG in SODIUM CHLORIDE 0.9% 50 ML IV PRN (11:59)
[2020-05-11] MEDS ORDERED: KETOROLAC 30 MG/ML VIAL IV PRN (11:59)
[2020-05-11] MEDS ORDERED: ePHEDrine sulfate 50 MG/ML AMP IV PRN (11:59)
[2020-05-11] MEDS ORDERED: BACITRACIN INJ 50,000 UNIT VIAL ONE (12:18)
[2020-05-11] MEDS ORDERED: SODIUM CHLORIDE 0.9% PF 50 ML VIAL ONE (12:18)
[2020-05-11] MEDS ORDERED: BUPIVACAINE 0.25% 30 ML VIAL ONE (12:18)
[2020-05-11] MEDS ORDERED: BUPIVACAINE LIPOSOME 1.3% 266 MG/20 ML VIAL ONE (12:18)
[2020-05-11] MEDS ORDERED: EPINEPHrine INJ 1 MG/ML AMP ONE (12:18)
[2020-05-11] MEDS ORDERED: PROPOFOL IV EMULSION 10 MG/ML 20 ML VIAL IV ONE ×2 (13:33→14:35)
--- NOTE | 2020-05-11 15:10 | Post Operative Brief Note ---
PG Immediate Post Op with CF Date of Surgery May 11, 2020 Pre & Post Diagnosis Operation Date: 05/11/20 12:30 Pre-Op Diagnosis: Right Knee Degenerative Joint Disease Post-Op Diagnosis: Right Knee Degenerative Joint Disease I identified the patient and participated in the time-out.: Yes Procedure Operation Date: 05/11/20 12:30 Actual Procedures p Right Total Knee Replacement, Cemented(Right) - Ferny Pacheco MD Surgeon Ferny Pacheco MD [employer] [place], [facility] Estimated Blood Loss 50 Findings Consistent with Post-Op Diagnosis Fluids 700 cc Specimens Specimen Description: Permanent Specimen A: Right knee bone and tissue Drains Zhang Catheter Anesthesia Type Spinal MAC Complications none Disposition Accompanied Patient To Recovery: No Disposition: Recovery Room
[2020-05-11] MEDS: HYDROmorphone INJ 1 MG/ML SYRINGE IV PRN ×4 (15:21→15:36)
--- NOTE | 2020-05-11 15:54 | XRay Report ---
RIGHT KNEE 2 VIEWS History: Right total knee arthroplasty. Degenerative arthritis. Postop. FINDINGS: The patient is status post a right total knee arthroplasty. The hardware is intact. No frac ture or dislocation. Skin dennise are in place. IMPRESSION: Right total knee arthroplasty. No evidence for hardware complication. ACT 112: Negative or not required by law. Electronically signed by: Lucho Kim M.D. 05/11/2020 3:53 PM
--- NOTE | 2020-05-11 16:02 | Anesthesiology Progress Note ---
Date of Service May 11, 2020 Anesthesia Post Procedure Vital Signs Vital Signs: Temp Pulse Pulse Resp BP BP Pulse Ox 05/11/20 16:00 67 23 129/82 93 05/11/20 15:50 71 16 151/82 H 94 05/11/20 15:40 36.4 C L 64 15 147/80 H 92 05/11/20 15:30 64 18 152/71 H 97 05/11/20 15:20 74 15 152/97 H 96 05/11/20 15:13 36.1 C L 81 20 168/78 H 100 05/11/20 11:10 36.7 C 67 20 125/91 100 05/11/20 10:37 37.0 C 82 20 172/98 H 99 Pain Intensity Right Thigh: Pain Intensity: 4 Transfer of Care Handoff Completed per policy Notes Mental Status: alert / awake / arousable Patient Amnestic to Procedure: Yes Nausea / Vomiting: adequately controlled Pain: adequately controlled Airway Patency, RR, SpO2: stable & adequate BP & HR: stable & adequate Hydration State: stable & adequate Neuraxial Anesthesia: was administered and sensory block is resolving Anesthetic Complications: no major complications apparent
[2020-05-11] MEDS ORDERED: FAMOTIDINE 20 MG TAB PO PRN (16:12)
[2020-05-11] MEDS ORDERED: HYDROmorphone INJ 0.5 MG/0.5 ML SYR IV PRN (16:12)
[2020-05-11] MEDS ORDERED: FUROSEMIDE 20 MG TAB PO PRN (16:12)
[2020-05-11] MEDS ORDERED: METOCLOPRAMIDE HCL INJ 5 MG/ML 2 ML VIAL IV PRN (16:12)
[2020-05-11] MEDS ORDERED: diphenhydrAMINE Capsule 25 MG CAP PO PRN (16:12)
[2020-05-11] MEDS ORDERED: oxyCODONE HCL IR 5 MG TAB (IMMEDIATE RELEASE) PO PRN (16:12)
[2020-05-11] MEDS ORDERED: MAGNESIUM HYDROXIDE SUSP 30 ML UDC PO PRN (16:12)
[2020-05-11] MEDS ORDERED: bisacodyL 10 MG SUPP PR PRN (16:12)
[2020-05-11] MEDS ORDERED: ALUMINUM/MAGNESIUM SUSP 30 ML UDC PO PRN (16:12)
[2020-05-11] MEDS ORDERED: NALOXONE HCL 0.4 MG/1 ML VIAL/CARP IV PRN (16:12)
[2020-05-11] MEDS: Scopolamine CHECK PATCH PLACEMENT SCH ×2 (16:20→22:40)
[2020-05-11] MEDS: SODIUM CHLORIDE 0.9% 1000ML 1,000 ML IV SCH (18:03)
[2020-05-11] MEDS: ASCORBIC ACID 500 MG TAB PO SCH (18:09)
[2020-05-11] MEDS: KETOROLAC TROMETHAMINE 15 MG/ML VIAL IV SCH ×2 (18:09→22:40)
[2020-05-11] MEDS: FERROUS GLUCONATE 324 MG TAB PO SCH (18:10)
--- NOTE | 2020-05-11 18:55 | Operative Report ---
Post Operative Report Pre & Post Diagnosis Operation Date: 05/11/20 12:30 Pre-Op Diagnosis: Right Knee Degenerative Joint Disease Post-Op Diagnosis: Right Knee Degenerative Joint Disease I identified the patient and participated in the time-out.: Yes Procedure Operation Date: 05/11/20 12:30 Actual Procedures p Right Total Knee Replacement, Cemented(Right) - Ferny Pacheco MD Surgeon Ferny Pacheco MD [facility], [facility] Estimated Blood Loss 50 Findings Consistent with Post-Op Diagnosis Operative findings revealed advanced right knee DJD with grade 4 [id number] disease of the medial and patellofemoral compartments and some focal grade 4 changes laterally. She had a varus deformity to her knee with a moderate sized knee joint effusion. Fluids 700 cc. Specimens Right knee sent for pathology. Drains None. Anesthesia Type Spinal MAC Complications none Disposition Accompanied Patient To Recovery: No Disposition: Recovery Room Indications Patient is a 60-year-old female is had a several year history of bilateral knee pain discomfort which became less responsive conservative treatment. She underwent a left knee replacement at 3 months ago is done well from this. Continued be limited by right knee pain and discomfort. She elected to proceed with surgical treatment. Of note, this patient has an apparent metal allergy and therefore we used a Nguyen [employer] Nephew zirconium total knee arthroplasty. Description of Procedure Operative implants consisted of: 1. Nguyen [employer] Nephew journey 2 size 5 right posterior stabilized femoral component. 2. Nguyen [employer] Nephew size 3 tibial tray. 3. 10 mm posterior stabilized polyethylene insert. 4. 29 x 9 all polypatella. The patient was taken the operating room identified and placed on the operating table supine position protectors were properly padded. IV antibiotics arrived by anesthesia team. Spinal anesthetic and abductor canal block had been applied in the holding area. Zhang catheter was placed in sterile fashion. Right thigh turn was then placed in the right lower extremity was then prepped and draped in usual sterile fashion. The right leg was elevated exsanguinated with use of an Esmarch interspace at 300 mmHg. An anterior approach in the right knee was then performed to longitudinal incision centered over the patella. Sharp dissection was got through subcutaneous is down the extensor mechanism. A medial parapatellar arthrotomy incision was made. Some subperiosteal dissection was carried out medially. The fat pad was resected from each patella tendon. Lateral patellofemoral ligament was was released and the patella was subluxated laterall y and the knee was flexed. The osteophytes were taken off distal femur. The ACL and PCL were then released from distal femur and the tibia subluxate anteriorly. The external tibial alignment exam placed in the interface of the tibia and adjusted 8 mm medially. Proximal tibial cut was made remove about 2 mm of bone from most efficient aspect medial till plateau. The tibia was then sized to a size 3. Attention drawn the femur. The distal femur was entered with a sharp drop with intramedullary canal was suction. A right 5 degree valgus cutting guide was placed. Distal femoral cutting block was pinned in place. Distal femoral cut was made to take an additional 2 mm of bone off distal femur. The femur was then sized and sized to a size 5. We did downsize a slightly. The AP cutting block was pinned parallel to the epicondylar axis which was 5 degrees of external rotation. The anterior cut, anterior cord cut, posterior cut, posterior chamfer cut, and anterior chamfer cuts were then made. The knee was then flexed and the remnants of the medial lateral menisci were excised. The osteophytes were taken off the posterior aspect of the femur. The trial femoral component was placed. The trochlear milling device was then placed in the intercondylar box was created. The trochlea was then placed. The tibia subluxated anteriorly. The tibial tray was then pinned in maximum external rotation and the drill and stem punch were used to create defect in proximal tip of the tibial tray. The knee was then trialed and the 10 mm insert fit most appropriately. Attention drawn the patella. Patella was cleaned of all soft tissues. Patella thickness measured 23 mm thickness was cut down to 14. Size a size 29 patella. Locals were drilled for the 29 patella. The lateral osteophyte is moved. Patella button was placed. Knee was taken through range of motion. And the patella tracked nicely with no thumbs test. Attention drawn to place the permanent components. Of all trial components removed. Bone plug was placed in the distal femur limit blood loss. L batch Palacos G cement was mixed. A Nguyen & Nephew size 7 5 Po stabilized femoral component, size 3 tibial tray, 10 mm posterior box polyethylene insert, 29 x 9 all polypatella then cemented in place. Knee was brought out in full extension total cement hardened. Final cement check was then performed. The pericapsular tissues were injected with total 100 cc of combination of 20 of Exparel, 30 cc normal saline, 50 cc of quarter percent Marcaine with epinephrine. Patient did receive 1 g tranexamic acid per the tourniquet was then let down for final turn time 50 minutes but hemostasis assured use electrocautery. Extensor mechanism closed with combination 1 PDS suture #1 Vicryl suture in [id number] fashion. The extensor mechanism checked found to be intact the subcutaneous tissue then closed with 2 Dexon suture in a buried interrupted fashion skin was closed skin dennise. Legs then cleaned dried a sterile dressing was Xeroform, 4 x 4's, sterile cast padding, Geovanny bandage were applied. Patient then transferred to the recovery room in stable condition. Patient tolerated procedure well and there are no complications. Trevor Palmer, my physician respiratory care assistant, was present for the entire procedure. His assistance was essential and required for appropriate patient positioning, prepping and draping, surgical exposure, performing the technical details of the operation, placement the implants, closure of the wound, and placement of the sterile bandage. I attest to the content of the Intraoperative Record and any orders documented therein. Any exceptions are noted below.
[2020-05-11] MEDS: LORATADINE 10 MG TAB PO SCH (20:58)
[2020-05-11] MEDS: DOCUSATE SODIUM 100 MG CAP PO SCH (20:59)
[2020-05-11] MEDS: SENNA 8.6 MG TAB PO SCH (20:59)
[2020-05-11] MEDS: ASPIRIN 81 MG ECTAB PO SCH (21:00)
[2020-05-11] MEDS: TAPENTADOL HCL ER 50 MG TABCR PO SCH (21:04)
[2020-05-11] MEDS ORDERED: TRANEXAMIC ACID / 0.7% NACL 1,000 MG/100 ML BAG IV SCH (21:15)
[2020-05-11] MEDS: ACETAMINOPHEN 500 MG TAB PO SCH (22:40)
[2020-05-11] MEDS: ceFAZolin 2000MG 2,000 MG/15 ML SYR IV SCH (22:40)
[2020-05-12] MEDS: SODIUM CHLORIDE 0.9% 1000ML 1,000 ML IV SCH (04:07)
[2020-05-12] MEDS: ACETAMINOPHEN 500 MG TAB PO SCH ×3 (06:00→22:11)
[2020-05-12] MEDS: ceFAZolin 2000MG 2,000 MG/15 ML SYR IV SCH (06:00)
[2020-05-12] MEDS: KETOROLAC TROMETHAMINE 15 MG/ML VIAL IV SCH ×4 (06:01→22:14)
[2020-05-12 07:06] LABS: Hematocrit (blood only) 37.3 % (37-47); Hemoglobin 11.7 g/dL (12.0-16.0); Mean Corpuscular Hemoglobin 28.4 pg (25-34); Mean Corpuscular Hgb Conc 31.4 g/dL (32-36); Mean Corpuscular Volume 90.5 fL (80-100); Mean Platelet Volume 9.8 fL (7.4-10.4); Platelet Count 283 K/uL (130-400); RDW Coefficient of Variation 14.6 % (11.5-14.5); RDW Standard Deviation 48.7 fL (36.4-46.3); Red Blood Count 4.12 M/uL (4.2-5.4); White Blood Count 10.17 K/uL (4.8-10.8)
[2020-05-12 07:38] LABS: BUN Creatinine Ratio 14.4 (10-20); Calcium 8.5 mg/dl (8.5-10.1); Creatinine Clr Calc Pharmacy 68.9 ml/min; Est GFR (African American) 86.3; Est GFR (Non-African American) 74.5
--- NOTE | 2020-05-12 08:06 | Progress Notes ---
DATE: 05/12/2020 SUBJECTIVE: A 60-year-old female postop day 1 from a right knee replacement. She is doing okay. Pain has been reasonably controlled. Denies any chest pain or shortness of breath. Not feeling dizzy or lightheaded. OBJECTIVE: VITAL SIGNS: Temperature 36.9. Vital signs stable. GENERAL: Shows a pleasant, middle-aged female. She is sitting up in bed, looks reasonably comfortable this morning. EXTREMITIES: Examination of the right leg reveals the leg to be well aligned. Dressing is clean, dry and intact. She can dorsiflex and plantarflex her foot appropriately. She is neurologically intact. LABORATORY DATA: Hemoglobin 11.7. Hematocrit 37.3. Electrolytes are pending. ASSESSMENT: A 60-year-old female postop day 1 from right knee replacement, doing pretty well. Pain is controlled. She is neurologically intact. PLAN: 1. DVT prophylaxis including thigh-high TEDs, SCDs, and aspirin twice a day. 2. PT/OT. Weight bear as tolerated. Right total knee protocol. 3. Pain control, doing well with current pain regimen. 4. Disposition: She is planning to be discharged to home and she is going to do outpatient therapy once adequately recovered and medically stable.
[2020-05-12] MEDS: ASCORBIC ACID 500 MG TAB PO SCH ×2 (08:10→17:07)
[2020-05-12] MEDS: Scopolamine CHECK PATCH PLACEMENT SCH ×2 (08:10→15:01)
[2020-05-12] MEDS: DOCUSATE SODIUM 100 MG CAP PO SCH ×2 (08:11→22:11)
[2020-05-12] MEDS: FERROUS GLUCONATE 324 MG TAB PO SCH ×2 (08:11→17:08)
[2020-05-12] MEDS: ASPIRIN 81 MG ECTAB PO SCH ×2 (08:12→22:10)
[2020-05-12] MEDS: MULTIVITAMIN TAB PO SCH (08:12)
[2020-05-12] MEDS: TAPENTADOL HCL ER 50 MG TABCR PO SCH ×2 (08:13→22:09)
[2020-05-12] MEDS: FLUoxetine HCL 20 MG CAP PO SCH (08:13)
[2020-05-12] MEDS: NICOTINE 14 MG/24 HR PATCH TD SCH (08:18)
[2020-05-12] MEDS: SENNA 8.6 MG TAB PO SCH (22:10)
[2020-05-12] MEDS: LORATADINE 10 MG TAB PO SCH (22:10)
[2020-05-13] MEDS: ACETAMINOPHEN 500 MG TAB PO SCH (06:26)
[2020-05-13] MEDS: KETOROLAC TROMETHAMINE 15 MG/ML VIAL IV SCH ×2 (06:26→10:27)
[2020-05-13 07:00] VITALS: TEMP 98.6; O2SAT 97
[2020-05-13] MEDS: ASCORBIC ACID 500 MG TAB PO SCH (08:33)
[2020-05-13] MEDS: DOCUSATE SODIUM 100 MG CAP PO SCH (08:33)
[2020-05-13] MEDS: ASPIRIN 81 MG ECTAB PO SCH (08:33)
[2020-05-13] MEDS: FERROUS GLUCONATE 324 MG TAB PO SCH (08:33)
[2020-05-13] MEDS: NICOTINE 14 MG/24 HR PATCH TD SCH (08:34)
[2020-05-13] MEDS: MULTIVITAMIN TAB PO SCH (08:34)
[2020-05-13] MEDS: FLUoxetine HCL 20 MG CAP PO SCH (08:34)
[2020-05-13] MEDS ORDERED: traMADol HCL 50 MG TABLET PO PRN (08:37)
[2020-05-13] MEDS: TAPENTADOL HCL ER 50 MG TABCR PO SCH (08:38)
--- NOTE | 2020-05-13 09:36 | Progress Notes ---
DATE: 05/13/2020 SUBJECTIVE: A 60-year-old female postop day 2 from right knee replacement. She is doing well. Therapy went pretty well. Pain is controlled. No chest pain or shortness of breath. OBJECTIVE: VITAL SIGNS: Temperature 37.0. Vital signs stable. GENERAL: Shows a pleasant, middle-aged female. She is sitting up in bed, looks pretty comfortable this morning. EXTREMITIES: Examination of the right leg reveals the incision to be clean, dry and intact. Some moderate swelling. Calf is soft and supple. She is neurologically intact. ASSESSMENT: A 60-year-old female postop day 2 from a right knee replacement, doing pretty well. Pain is controlled. PLAN: 1. DVT prophylaxis including thigh-high TEDs, SCDs, and aspirin twice a day. 2. PT/OT. Weight bear as tolerated. Right total knee protocol. 3. Pain control, doing well with current pain regimen. 4. Disposition: She is planning to be discharged to home. She is going to do outpatient therapy.
[2020-05-13 10:51] VITALS: BP 154/92; PULSE 67
--- NOTE | 2020-05-16 13:30 | Discharge Summary ---
Date of Service May 16, 2020 Admission HPI Per Admitting Provider Documented in the H & P Admission Exam (Per Admitting) Constitutional Documented in the H & P Discharge Data Consultations 05/11/20 16:12 Consult Case Management - Discharge Planning Routine Procedures Performed Operation Date: 05/11/20 12:30 Actual Procedures p Right Total Knee Replacement, Cemented(Right) - Ferny Pacheco MD Hospital Course (1) Status post total right knee replacement: This patient is a 60 year old female admitted on 05/11/20 and underwent total knee arthroplasty. She tolerated the procedure well and there were no complications. Transferred to the PACU post op and later to the orthopedic floor for further care. She was given ancef for antibiotic prophylaxis. She was also given RAO stockings, SCDs, and aspirin for DVT prophylaxis. Hemoglobin, hematocrit, and vital signs were monitored during her hospital stay and remained stable. Did not require any blood transfusions. There were no complications during her hospital stay. By post op day #2 the patient was tolerating a regular diet, pain was reasonably controlled with oral pain medicine, and she was participating in physical therapy. On post op day #2 the patient was discharged home and set up with home health care. She was given printed discharge instructions including prescriptions for extra strength tylenol, aspirin, and tramadol. Continue physical therapy, weight bearing as tolerated. Continue RAO stockings. Follow up approximately 2 weeks post op or sooner if there are problems or concerns. Coding Level of Care Code None Diagnoses Status post total right knee replacement Z96.651
== END 2020-05-13 11:54 | disposition home health service (06) ==
LOC: 3E 10:07 → ASU 10:07
DX: K21.9 Gastro-esophageal reflux disease without esophagitis; F32.9 Major depressive disorder, single episode, unspecified; F17.210 Nicotine dependence, cigarettes, uncomplicated; Z79.899 Other long term (current) drug therapy; M19.90 Unspecified osteoarthritis, unspecified site; M17.11 Unilateral primary osteoarthritis, right knee; Z96.652 Presence of left artificial knee joint; Z20.828 Contact with and (suspected) exposure to other viral communicable diseases; E66.9 Obesity, unspecified